=== PATIENT | female | born 1965 | race Caucasian/White ===

== ENCOUNTER 2017-10-22 21:46 | Inpatient (IN) | payer BC ==
[~2017-10-22] VITALS: Ht 162.6 cm; Wt 70.3 kg
[~2017-10-22 21:46] MED LIST: CHEWABLE-VITE1 EACH PO; LEXAPRO10 MG PO; SINGULAIR10 MG PO; ZYRTEC10 M3 PO
[2017-10-23 09:58] VITALS: BP 115/70
[2017-10-23 15:30] VITALS: BP 138/75
[2017-10-23 18:11] LABS: HEMATOCRIT 37.6 % (36.0-46.0); HEMOGLOBIN 12.6 G/DL (11.9-15.5); MCH 31.2 PG (29.0-34.0); MCHC 33.5 G/DL (30.0-36.0); MCV 93.1 FL (83-99); PLATELET COUNT 197 K/uL (156-360); RBC DIS.WIDTH-CV 13.3 % (11.8-14.6); RBC DIS.WIDTH-SD 45.5 % (39-53); RED BLOOD COUNT 4.04 M/uL (3.80-5.20); WHITE BLOOD COUNT 14.6 K/uL (4.1-10.2)
[2017-10-23 18:21] LABS: CHLORIDE 103 MEQ/L (99-109); POTASSIUM 3.7 MEQ/L (3.7-5.4); SODIUM 135 MEQ/L (136-147)
[2017-10-23 18:27] LABS: CREATININE 0.6 MG/DL (0.6-1.3); GFR ESTIMATE (CALCULATED) > 59 mL/min/; GLUCOSE 153 mg/dL (70-99); UREA NITROGEN (BUN) 8 mg/dL (9-23)
[2017-10-23 19:43] VITALS: BP 127/76
[2017-10-23 23:15] VITALS: BP 128/70
[2017-10-24 03:30] VITALS: BP 125/61
[2017-10-24 07:07] LABS: HEMOGLOBIN 11.4 G/DL (11.9-15.5); MCH 30.9 PG (29.0-34.0); MCHC 33.5 G/DL (30.0-36.0); MCV 92.1 FL (83-99); PLATELET COUNT 210 K/uL (156-360); RBC DIS.WIDTH-CV 13.2 % (11.8-14.6); RBC DIS.WIDTH-SD 44.7 % (39-53); RED BLOOD COUNT 3.69 M/uL (3.80-5.20); WHITE BLOOD COUNT 19.3 K/uL (4.1-10.2)
[2017-10-24 07:36] LABS: CHLORIDE 100 MEQ/L (99-109); CREATININE 0.6 MG/DL (0.6-1.3); GFR ESTIMATE (CALCULATED) > 59 mL/min/; GLUCOSE 116 mg/dL (70-99); POTASSIUM 3.8 MEQ/L (3.7-5.4); SODIUM 131 MEQ/L (136-147); UREA NITROGEN (BUN) 7 mg/dL (9-23)
[2017-10-24 08:00] VITALS: BP 116/66
[2017-10-24 12:17] VITALS: BP 118/68
[2017-10-24 15:20] VITALS: BP 139/75
[2017-10-24 19:21] VITALS: BP 133/72
[2017-10-24 23:41] VITALS: BP 137/81
[2017-10-25 03:37] VITALS: BP 128/76
[2017-10-25 07:05] LABS: HEMATOCRIT 32.4 % (36.0-46.0); MCH 31.9 PG (29.0-34.0); MCV 93.9 FL (83-99); PLATELET COUNT 229 K/uL (156-360); RBC DIS.WIDTH-CV 13.8 % (11.8-14.6); RBC DIS.WIDTH-SD 46.8 % (39-53); RED BLOOD COUNT 3.45 M/uL (3.80-5.20); WHITE BLOOD COUNT 13.9 K/uL (4.1-10.2)
[2017-10-25 07:32] LABS: CHLORIDE 106 MEQ/L (99-109); CREATININE 0.6 MG/DL (0.6-1.3); GFR ESTIMATE (CALCULATED) > 59 mL/min/; GLUCOSE 147 mg/dL (70-99); POTASSIUM 3.4 MEQ/L (3.7-5.4); UREA NITROGEN (BUN) 8 mg/dL (9-23)
[2017-10-25 07:33] LABS: SODIUM 141 MEQ/L (136-147)
[2017-10-25] MEDS ORDERED: TRAMADOL HCL50 MG PO (08:37)
== END 2017-10-25 09:30 | disposition home or self-care (01) | DRG 743 ==
LOC: ENRESERV 21:46 → 2SOUTH 10-23 08:38 → ENRESERV 10-23 14:55 → 2EAST 10-23 15:17 → 2SOUTH 10-23 16:01 → 2EAST 10-25 09:30
PROVIDERS: Obstetrics & Gynecology Gynecologic Oncology
PROC: 0UT90ZZ Resection of Uterus, Open Approach (ICD-10-PCS; principal; 2017-10-23)
PROC: 0UT70ZZ Resection of Bilateral Fallopian Tubes, Open Approach (ICD-10-PCS; principal; 2017-10-23)
PROC: 0UT20ZZ Resection of Bilateral Ovaries, Open Approach (ICD-10-PCS; principal; 2017-10-23)
PROC: 0DNW0ZZ Release Peritoneum, Open Approach (ICD-10-PCS; principal; 2017-10-23)
DX: Z40.02 Encounter for prophylactic removal of ovary(s) (principal); Z15.02 Genetic susceptibility to malignant neoplasm of ovary; Z40.09 Encounter for prophylactic removal of other organ; N73.6 Female pelvic peritoneal adhesions (postinfective); Z80.41 Family history of malignant neoplasm of ovary; Z80.3 Family history of malignant neoplasm of breast
CPT/HCPCS: 36415; 80048; 85027; 86850; 86900; 86901; 86920; 88307; 88342 TC; 94799; J0131; J0330; J0690; J1100; J1170; J1650; J1885; J2250; J2405; J2710; J2765; J3010; J7120; Q0175